=== PATIENT | female | born 1975 | race Caucasian/White ===

== ENCOUNTER 2020-05-09 18:39 | Emergency (ER) | payer MEDICAID ==
[2020-05-09 19:49] LABS: ANION GAP 12.5 mmol/L (10-20)
--- NOTE | 2020-05-09 19:57 | EDM.PDOC ---
ED HPI GENERAL MEDICAL PROBLEM - General Chief Complaint: Diabetic Complaint Stated Complaint: hypoglycemia Time Seen by Provider: 05/09/20 18:40 Source of Information: Reports: Patient, EMS, Family History Limitations: Reports: No Limitations - History of Present Illness INITIAL COMMENTS - FREE TEXT/NARRATIVE: Patient comes emergency department today from home by ambulance with concerns of hypoglycemic event. This is a patient who is a type I diabetic who has 1-2 hypoglycemic events a week. Today she was without any complaints or any illness complaints. She has been taking her insulin as prescribed. She laid down to take a nap about 2-3 her mom came and checked on her at 5 and found her unresponsive. The ambulance was summoned. Upon EMS arrival the patient was un responsive but had regular respirations and good pulse. Blood sugar check showed "low". She was given a 1-1/2 A of dextrose in route to the hospital. She did alert after her blood sugar improved. Her last blood sugar was 321 by ambulance. The only thing that the patient really is complaining about is being cold upon arrival. She denies any fever or chills. No cough congestion shortness of breath or difficulty breathing. No chest pain. No abdominal pain nausea or vomiting. No hematuria dysuria or urinary frequency. No black or tarry stools. Treatments FLOW WORKER: Reports: IV/IO, Other (see below) Other Treatments FLOW WORKER: D50 Generalized Pain Score (Numeric/FACES): 8 - Related Data Allergies Allergy/AdvReac Type Severity Reaction Status Date / Time azithromycin [From Zithromax] Allergy Rash Verified 05/09/20 19:06 Home Meds: Home Meds Cyclobenzaprine [Flexeril] 10 - 20 mg PO DAILY 05/09/20 [History] DULoxetine [Cymbalta] 60 mg PO DAILY 05/09/20 [History] Gabapentin [Neurontin] 600 mg PO BID 05/09/20 [History] Insulin Aspart [NovoLOG] 10 unit SQ WITHMEALSANDBED 05/09/20 [History] Insulin Detemir [Levemir] 34 unit SUBCUT DAILY 05/09/20 [History] Levothyroxine 150 mcg PO ACBREAKFAST 05/09/20 [History] diphenhydrAMINE [Benadryl] 25 mg PO Q6H PRN 05/09/20 [History] hydrOXYzine HCL [Atarax] 25 mg PO QID PRN 05/09/20 [History] 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 ED EXAM GENERAL NO PERIP PULSE - Physical Exam Exam: See Below Exam Limited By: No Limitations General Appearance: Alert (she alerts easily to soft words. ), WD/WN, No Apparent Distress Eye Exam: Bilateral Eye: EOMI, PERRL Ears: Normal External Exam Nose: Normal Inspection Throat/Mouth: Normal Inspection Head: Atraumatic, Normocephalic Neck: Normal Inspection Respiratory/Chest: No Respiratory Distress, Lungs Clear, Normal Breath Sounds, Chest Non-Tender Cardiovascular: Normal Peripheral Pulses, Regular Rate, Rhythm GI/Abdominal: Normal Bowel Sounds, Soft (Female) Exam: Deferred Rectal (Female) Exam: Deferred Back Exam: Normal Inspection Extremities: Normal Inspection, Non-Tender, No Pedal Edema, Normal Capillary Refill Neurological: Alert (alerts easily to verbal soft. ), Oriented, Normal Cognition, No Motor/Sensory Deficits Psychiatric: Normal Affect, Normal Mood Skin Exam: Dry, Intact, Normal Color, Cool Course - Vital Signs Last Recorded V/S: Last Vital Signs Temp 96.3 F L 05/09/20 18:55 Pulse 84 05/09/20 18:55 Resp 16 05/09/20 18:55 BP 113/67 05/09/20 18:55 Pulse Ox 94 L 05/09/20 18:55 - Orders/Labs/Meds Orders: Active Orders 24 hr Category Date Time Status Accu Check [Blood Glucose Check, Bedside] [RC] Care 05/09/20 19:48 Active ASDIRECTED Labs: Laboratory Tests 05/09/20 05/09/20 05/09/20 Range/Units 19:28 19:28 20:00 WBC 4.8 (4.0-10.0) x10^3/uL RBC 4.18 (4.00-5.50) x10^6/uL Hgb 10.8 L (12.0-16.0) g/dL Hct 34.1 (33.0-47.0) % MCV 81.6 (78.0-93.0) fL MCH 25.8 L (26.0-32.0) pg MCHC 31.7 L (32.0-36.0) g/dL RDW Coeff of Duncan 15.5 H (10.0-15.0) % Plt Count 267 (130-400) x10^3/uL Neut % (Auto) 56.2 (50.0-80.0) % Lymph % (Auto) 28.3 (25.0-50.0) % [place] % (Auto) 14.7 H (2.0-11.0) % Eos % (Auto) 0.4 (0.0-4.0) % Baso % (Auto) 0.4 (0.2-1.2) % Sodium 132 L (136-145) mmol/L Potassium 4.5 (3.5-5.1) mmol/L Chloride 96 L (98-107) mmol/L Carbon Dioxide 28 (21-32) mmol/L Anion Gap 12.5 (10-20) mmol/L BUN 20 H (7-18) mg/dL Creatinine 1.1 H (0.55-1.02) mg/dL Est Cr Clr Drug Dosing 60.46 mL/min Estimated GFR (MDRD) 54 Glucose 211 H (74-106) mg/dL POC Glucose (74-106) mg/dL Calcium 9.0 (8.5-10.1) mg/dL Corrected Calcium 9.24 (8.5-10.1) mg/dL Total Bilirubin 0.3 (0.2-1.0) mg/dL AST 59 H (15-37) U/L ALT 36 (14-59) U/L Alkaline Phosphatase 125 H (46-116) U/L Total Protein 7.9 (6.4-8.2) g/dL Albumin 3.7 (3.4-5.0) g/dL Globulin 4.2 Albumin/Globulin Ratio 0.88 Urine Color Yellow (YELLOW) Urine Appearance Clear (CLEAR) Urine pH 5.5 (5.0-8.0) Ur Specific [place] 1.025 Urine Protein Negative (NEGATIVE) mg/dL Urine Glucose (UA) >=1000 H (NEGATIVE) mg/dL Urine Ketones Negative (NEGATIVE) mg/dL Urine Occult Blood Moderate H (NEGATIVE) Urine Nitrite Negative (NEGATIVE) Urine Bilirubin Negative (NEGATIVE) Urine Urobilinogen 0.2 (0.2) EU/dL Ur Leukocyte Esterase Negative (NEGATIVE) Urine RBC 0-5 (NOT SEEN) /HPF Urine WBC 0-5 (NOT SEEN) /HPF Ur Epithelial Cells Moderate Urine Bacteria Few H (NEGATIVE) /HPF Urine Opiates Screen (NEGATIVE) Ur Buprenorphine Scrn (NEGATIVE) Ur Oxycodone Screen (NEGATIVE) Ur EDDP (Meth Metab) (NEGATIVE) Urine Methadone Screen (NEGATIVE) Ur Barbiturates Screen (NEGATIVE) Ur Tricyclics Screen (NEGATIVE) Ur Phencyclidine Scrn (NEGATIVE) Ur Amphetamine Screen (NEGATIVE) U Methamphetamines Scrn (NEGATIVE) Urine MDMA Screen (NEGATIVE) U Benzodiazepines Scrn (NEGATIVE) U Cocaine Metab Screen (NEGATIVE) U Marijuana (THC) Screen (NEGATIVE) 05/09/20 05/09/20 Range/Units 20:00 20:04 WBC (4.0-10.0) x10^3/uL RBC (4.00-5.50) x10^6/uL Hgb (12.0-16.0) g/dL Hct (33.0-47.0) % MCV (78.0-93.0) fL MCH (26.0-32.0) pg MCHC (32.0-36.0) g/dL RDW Coeff of Duncan (10.0-15.0) % Plt Count (130-400) x10^3/uL Neut % (Auto) (50.0-80.0) % Lymph % (Auto) (25.0-50.0) % [place] % (Auto) (2.0-11.0) % Eos % (Auto) (0.0-4.0) % Baso % (Auto) (0.2-1.2) % Sodium (136-145) mmol/L Potassium (3.5-5.1) mmol/L Chloride (98-107) mmol/L Carbon Dioxide (21-32) mmol/L Anion Gap (10-20) mmol/L BUN (7-18) mg/dL Creatinine (0.55-1.02) mg/dL Est Cr Clr Drug Dosing mL/min Estimated GFR (MDRD) Glucose (74-106) mg/dL POC Glucose 179 H (74-106) mg/dL Calcium (8.5-10.1) mg/dL Corrected Calcium (8.5-10.1) mg/dL Total Bilirubin (0.2-1.0) mg/dL AST (15-37) U/L ALT (14-59) U/L Alkaline Phosphatase (46-116) U/L Total Protein (6.4-8.2) g/dL Albumin (3.4-5.0) g/dL Globulin Albumin/Globulin Ratio Urine Color (YELLOW) Urine Appearance (CLEAR) Urine pH (5.0-8.0) Ur Specific [place] Urine Protein (NEGATIVE) mg/dL Urine Glucose (UA) (NEGATIVE) mg/dL Urine Ketones (NEGATIVE) mg/dL Urine Occult Blood (NEGATIVE) Urine Nitrite (NEGATIVE) Urine Bilirubin (NEGATIVE) Urine Urobilinogen (0.2) EU/dL Ur Leukocyte Esterase (NEGATIVE) Urine RBC (NOT SEEN) /HPF Urine WBC (NOT SEEN) /HPF Ur Epithelial Cells Urine Bacteria (NEGATIVE) /HPF Urine Opiates Screen Positive H (NEGATIVE) Ur Buprenorphine Scrn Negative (NEGATIVE) Ur Oxycodone Screen Negative (NEGATIVE) Ur EDDP (Meth Metab) Negative (NEGATIVE) Urine Methadone Screen Negative (NEGATIVE) Ur Barbiturates Screen Negative (NEGATIVE) Ur Tricyclics Screen Negative (NEGATIVE) Ur Phencyclidine Scrn Negative (NEGATIVE) Ur Amphetamine Screen Negative (NEGATIVE) U Methamphetamines Scrn Negative (NEGATIVE) Urine MDMA Screen Negative (NEGATIVE) U Benzodiazepines Scrn Negative (NEGATIVE) U Cocaine Metab Screen Negative (NEGATIVE) U Marijuana (THC) Screen Positive H (NEGATIVE) - Re-Assessments/Exams Free Text/Narrative Re-Assessment/Exam: 05/09/20 Patient was monitored closely in the emergency department. Her blood sugar did drop down to 179 and then 168 although she was eating food when her blood sugar was starting to decline. She is without any complaints at this time. She is alert appropriate. She has had a change in her Levemir from 30 units to 34 units daily in the past couple of weeks. She feels this is what is causing her hypoglycemic events that she has had more frequently. It is usually not typical for long-acting insulin such as Levemir to cause hypoglycemic events like this. 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 Not change her Levemir at this time and I will leave that up to primary care. Like her to check her blood sugars every 30 minutes when she gets home tonight. Adjust appropriately. And watch her blood sugars closer tomorrow. She is comfortable with this plan and her questions are answered. Departure - Departure Time of Disposition: 20:49 Disposition: Home, Self-Care 01 Clinical Impression: Hypoglycemia DM I (diabetes mellitus, type I) Qualifiers: Diabetes mellitus complication status: with hypoglycemia Diabetes mellitus complication detail: without coma Qualified Code(s): E10.649 - Type 1 diabetes mellitus with hypoglycemia without coma - Discharge Information Instructions: Hypoglycemia, [id number] Referrals: Jeremías Carmona MD [Primary Care Provider] - Forms: ED Department Discharge Additional Instructions: Check your blood sugars every 30 minutes tonight and adjust appropriately. Watch them closer tomorrow as well. Contact your PCP you might want to decrease your Levemir to 32 units daily although that is primary cares call. Return to the ED if new or worsening symptoms. Sepsis Event Note (ED) - Evaluation Sepsis Screening Result: No Definite Risk - Focused Exam Vital Signs: Vital Signs Temp Pulse Resp BP Pulse Ox 05/09/20 18:55 96.3 F L 84 16 113/67 94 L - My Orders Last 24 Hours: My Active Orders 05/09/20 19:48 Accu Check [Blood Glucose Check, Bedside] [RC] ASDIRECTED - Assessment/Plan Last 24 Hours: My Active Orders 05/09/20 19:48 Accu Check [Blood Glucose Check, Bedside] [RC] ASDIRECTED
[2020-05-09 20:06] LABS: EDDP,URINE SCREEN NEGATIVE (NEGATIVE)
[2020-05-09 20:07] LABS: BARBITURATE SCREEN,URINE NEGATIVE (NEGATIVE); BENZODIAZEPINES SCREEN,URINE NEGATIVE (NEGATIVE); TCA SCREEN,URINE NEGATIVE (NEGATIVE)
[2020-05-09 20:08] LABS: THC SCREEN,URINE 50 NG/ML POSITIVE (NEGATIVE)
[2020-05-09 20:09] LABS: METHAMPHETAMINE SCREEN, URINE NEGATIVE (NEGATIVE)
== END 2020-05-09 21:26 | disposition home or self-care (01) ==
LOC: VM.ED 18:39
DX: E10.649 Type 1 diabetes mellitus with hypoglycemia without coma (principal); F17.210 Nicotine dependence, cigarettes, uncomplicated; F32.9 Major depressive disorder, single episode, unspecified; E03.9 Hypothyroidism, unspecified; Z79.899 Other long term (current) drug therapy; Z88.1 Allergy status to other antibiotic agents
CPT/HCPCS: 36415; 80053; 80305-QW; 81001; 82962; 85025; 99284; 99285

== ENCOUNTER 2021-07-07 11:20 | Emergency (ER) | payer MEDICAID ==
--- NOTE | 2021-07-07 11:52 | EDM.PDOC ---
ED HPI GENERAL MEDICAL PROBLEM - General Stated Complaint: UNRESPONSIVE Time Seen by Provider: 07/07/21 11:20 Source of Information: Reports: EMS, EMS Notes Reviewed, Family History Limitations: Reports: Other (intubated, unresponsive, asytole) - History of Present Illness INITIAL COMMENTS - FREE TEXT/NARRATIVE: Patient arrives via EMS with dev performing chest compression, intubated. Best rhythm was asystole and cpr has been ongoing for 30 minutes. According to family She was last seen well at 6 am. Has been struggling with her blood glucose ( IDDM). Around 10:20 the patient's mother tried to awaken the patient but was unable, states she thought she was breathing but couldn't feel a pulse. EMS was dispatched to location with en route time 15-20 minutes. A sampler first did get to the house at the same time. Interventions were started. IO placed in the right tibia, dev started, intubated and was ventilated with bag and oxygen. three rounds of epi were given. patientt was warm, not breathing, without a pulse and according to ems with dusky fingernail beds. Call to ED was placed, blood glucose reading was " high". fuids infusing in the IO, amp of bicarbonate given and they were en route to the ED. one more round of epi given prior to arrival. No change in patient status at arrival - Related Data Allergies Allergy/AdvReac Type Severity Reaction Status Date / Time azithromycin [From Zithromax] Allergy Rash Verified 05/09/20 19:06 Home Meds: Home Meds Cyclobenzaprine [Flexeril] 10 - 20 mg PO DAILY 05/09/20 [History] DULoxetine [Cymbalta] 60 mg PO DAILY 05/09/20 [History] Gabapentin [Neurontin] 600 mg PO BID 05/09/20 [History] Insulin Aspart [NovoLOG] 10 unit SQ WITHMEALSANDBED 05/09/20 [History] Insulin Detemir [Levemir] 34 unit SUBCUT DAILY 05/09/20 [History] Levothyroxine 150 mcg PO ACBREAKFAST 05/09/20 [History] diphenhydrAMINE [Benadryl] 25 mg PO Q6H PRN 05/09/20 [History] hydrOXYzine HCL [Atarax] 25 mg PO QID PRN 05/09/20 [History] 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 Musculoskeletal History: Reports: Fibromyalgia Psychiatric History: Reports: Depression Endocrine/Metabolic History: Reports: Diabetes, Type I, Hypothyroidism ED ROS GENERAL - Review of Systems Review Of Systems: Unable To Obtain Reason Not Obtained: patient is intubated/ ED EXAM, CPR - Physical Exam Exam: See Below Limited By: Other (intubated, cpr in progress) Eye Exam: Bilateral Eye: Other (pupils dilated to 10 mm, fixed, equal) Throat/Mouth: Other (intubated, some blood in the ET tube) Respiratory Chest: Other (no spontaneous respirations, intubated, equal breath sound with bagging) Cardiovascular: CPR In Progress Extremities: Other (IO in the right lower leg) Course - Re-Assessments/Exams Free Text/Narrative Re-Assessment/Exam: 07/07/21 at arrival, cpr continued, nailbed blue. monitor attached. dev stopped. asystole on monitor. suctioned blood out of airway. CPr continued. NO family available. Patient been down for 1 hour, no spontaneous breathing, asystole for the last 30 minutes, multiple rounds of epinephrine and one round of bicarbonate. No further interventions attempted due to time down and best rhythm, was asystole. Time of called at 11:25. Checking her medications after this was found to have a prescription for gabapentin on 06/18 with larger than prescribed dose missing. Also missing from her medications was #90 lorazepam 0.5 mg; #60 tramadol 50 mg; both on 07/01. Also on 06/23 was hydrocodone/acet 5/325 #28. strategic partnership representative for the family here, will inform family. Cause of unknown. cardiac arrest preliminary 07/07/21 12:16 Call to the clerical warehouseman's office. Was an attended . He did call the family. 07/07/21 13:17 No coroners case, family does not want autopsy Departure - Departure Time of Disposition: 11:25 Disposition: 20 Preliminary Cause of *Q: Cardiac Arrest Clinical Impression: Cardiac arrest - Discharge Information Referrals: PCP,Unknown [Primary Care Provider] -
== END 2021-07-07 15:39 | disposition expired ==
LOC: VM.ED 11:20
DX: I46.9 Cardiac arrest, cause unspecified (principal); E03.9 Hypothyroidism, unspecified; E10.8 Type 1 diabetes mellitus with unspecified complications; Z79.899 Other long term (current) drug therapy
CPT/HCPCS: 92950; 99285-25